=== PATIENT | female | born 1985 | race Caucasian/White ===

== ENCOUNTER 2018-02-14 17:07 | Emergency (ER) | payer OTHER, BC ==
[~2018-02-14] VITALS: Ht 167.6 cm; Wt 120.0 kg
[~2018-02-14 17:07] MED LIST: ALPRAZOLAM0.25 M2 PO; ATARAX,VISTARIL50 MG PO; CYANOCOBALAM1000 MCG PO; HAIR, SKIN & N1 EAC2 PO; MAGNESIUM27 MG PO; NOHOMEMEDS; ORTHO TRI-CYCL1 EACH PO; PREDNISONE50 MG PO; ULTRAM50 MG PO; ZANTAC150 MG PO; ZANTAC300 MG PO
[2018-02-14 17:58] LABS: HEMATOCRIT 37.4 % (36.0-46.0); HEMOGLOBIN 13.2 G/DL (11.9-15.5); MCH 31.1 PG (29.0-34.0); MCHC 35.3 G/DL (30.0-36.0); MCV 88.2 FL (83-99); PLATELET COUNT 299 K/uL (156-360); RBC DIS.WIDTH-CV 13.8 % (11.8-14.6); RBC DIS.WIDTH-SD 44.1 % (39-53); RED BLOOD COUNT 4.24 M/uL (3.80-5.20); WHITE BLOOD COUNT 14.3 K/uL (4.1-10.2)
[2018-02-14 18:11] LABS: ALBUMIN 4.2 g/dL (3.2-4.8); CHLORIDE 103 mEq/L (99-109); POTASSIUM 3.8 mEq/L (3.7-5.4); SODIUM 137 mEq/L (136-147)
[2018-02-14 18:13] LABS: GLUCOSE 105 mg/dL (70-99); TOTAL PROTEIN 6.9 g/dL (6.4-8.3)
[2018-02-14 18:15] LABS: TOTAL BILIRUBIN 0.2 mg/dL (0.0-1.0)
[2018-02-14 18:17] LABS: ALKALINE PHOSPHATASE 79 IU/L (3-129); CREATININE 0.8 mg/dL (0.6-1.3); GFR ESTIMATE (CALCULATED) > 59 mL/min/
[2018-02-14 18:18] LABS: UREA NITROGEN (BUN) 14 mg/dL (9-23)
[2018-02-14 18:19] LABS: AST (GOT) 21 IU/L (2-34)
[2018-02-14 18:20] LABS: ALT (GPT) 35 IU/L (3-49)
[2018-02-14 19:20] LABS: APPEARANCE SL.HAZY ((CLEAR)); BILIRUBIN NEGATIVE; BLOOD NEGATIVE; COLOR YELLOW ((YELLOW)); GLUCOSE (STRIP) NEGATIVE; KETONES NEGATIVE; LEUKOCYTES NEGATIVE; NITRITE NEGATIVE; PROTEIN (STRIP) NEGATIVE; SPECIFIC GRAVITY 1.023 (1.000-1.030)
[2018-02-14 19:31] LABS: BACTERIA NONE SEEN /HPF; CALCIUM OXALATE CRYSTALS 3+ /HPF; EPITHELIAL CELLS 1+ /HPF; MUCUS TRACE /LPF; RED BLOOD CELLS 0-5 /HPF (0-5); UCUL ADDED? NO; WHITE BLOOD CELLS 0-5 /HPF (0-5)
[2018-02-14 19:40] VITALS: BP 158/91
== END 2018-02-14 19:41 | disposition home or self-care (01) ==
LOC: EME 17:07 → RME 17:07
PROVIDERS: Physician Assistant
DX: Z48.89 Encounter for other specified surgical aftercare (principal); J45.909 Unspecified asthma, uncomplicated; F41.9 Anxiety disorder, unspecified; F17.200 Nicotine dependence, unspecified, uncomplicated; Z88.2 Allergy status to sulfonamides; Z88.0 Allergy status to penicillin; Z91.040 Latex allergy status
CPT/HCPCS: 80053; 81003; 85027; 99281; 99284